=== PATIENT | female | born 1950 | race Caucasian/White ===

== ENCOUNTER 2017-06-16 09:12 | Outpatient (CLI) | payer MEDICARE, BC ==
--- NOTE | 2017-06-16 19:37 | PET ---
NUCLEAR MEDICINE PET-CT BRAIN: Date: 06/16/17 HISTORY: 66-year-old female with other frontotemporal dementia. TECHNIQUE: IV injection of 10.9 mCi [id number]. PET scan and attenuation correction CT of the brain obtained. FINDINGS: The attenuation correction CT demonstrates no high grade brain atrophy. The ventricles are normal in size and configuration. No mass effect or midline shift. The primary purpose of the CT is for atten uation correction, and is not of diagnostic quality. Therefore, subtle focal lesions, and chronic is chemic white matter changes, cannot be evaluated. For that, MRI would be recommended (unless there a re contraindications to MRI). There is adequate FDG localization in the occipital lobes, bilateral f rontal lobes, posterior cingulate gyrus, and precuneus. There is relatively decreased FDG localizati on in the anterior aspects of the bilateral temporal lobes, and possibly in the anterior cingulate g yrus. 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 Clinical correl ation is recommended (for example, is there significant problem with language?). POS: [facility]
== END 2017-06-16 09:13 | disposition home or self-care (01) ==
LOC: PET 09:12
PROVIDERS: ATTEND Psychiatry & Neurology Neurology
DX: G31.09 Other frontotemporal neurocognitive disorder (principal)
CPT/HCPCS: 78608; A9552

== ENCOUNTER 2019-10-18 10:28 | Outpatient (CLI) | payer MEDICARE, BC ==
--- NOTE | 2019-10-18 13:58 | MRI ---
BRAIN MRI WITH AND WITHOUT CONTRAST: DATE: 10/18/2019. COMPARISON: None. HISTORY: Vascular headache. TECHNIQUE: Multiplanar, multisequence MR imaging of the brain obtained with and without contrast. FINDINGS: The diffusion weighted imaging demonstrates no evidence for acute infarction. The axial gradient ech o imaging demonstrates no evidence for intracranial hemorrhage. There is extensive multifocal perive ntricular, deep, and subcortical white matter T2 and FLAIR hyperintensity, evidence of significant sm all-vessel disease. Regional bone marrow signal intensity appears grossly unremarkable. The imaged paranasal sinuses/mastoid air cells are unremarkable. Arterial flow voids at the axial le benja of the skull base appear unremarkable on the T2 weighted imaging. The postcontrast imaging demonstrates no abnormal enhancement within the brain parenchyma. IMPRESSION: MR evidence of significant small-vessel disease. No acute findings. POS: [facility]
== END 2019-10-18 10:29 | disposition home or self-care (01) ==
LOC: SCSMRI 10:28
PROVIDERS: ATTEND Psychiatry & Neurology Neurology
DX: G44.1 Vascular headache, not elsewhere classified (principal); I67.89 Other cerebrovascular disease
CPT/HCPCS: 70553; 82565